=== PATIENT | female | born 1995 | race Caucasian/White ===

== ENCOUNTER 2017-08-20 17:21 | Emergency (ER) | payer OTHER ==
[~2017-08-20] VITALS: Ht 157.5 cm; Wt 60.3 kg
[~2017-08-20 17:21] MED LIST: DESPEC-DM TABL1 EAC1 PO
== END 2017-08-20 20:16 | disposition home or self-care (01) ==
LOC: ER 17:21
DX: L02.415 Cutaneous abscess of right lower limb (principal)

== ENCOUNTER 2018-02-19 23:10 | Emergency (ER) | payer OTHER ==
[~2018-02-19] VITALS: Ht 157.5 cm; Wt 60.3 kg
== END 2018-02-20 08:13 | disposition home or self-care (01) ==
LOC: ER 23:10
DX: N39.0 Urinary tract infection, site not specified (principal)